=== PATIENT | female | born 1955 | race Caucasian/White ===

== ENCOUNTER 2023-07-01 05:11 | Observation (INO) | payer MEDICARE, BC ==
[2023-06-27 11:52] VITALS: BP 149/80; PULSE 68; RESP 19
[2023-06-27 12:13] LABS: BASOPHILS # (AUTO) 0.03 K/uL (0.00-0.20); BASOPHILS % (AUTO) 0.6 % (0.0-5.0); EOSINOPHILS # (AUTO) 0.08 K/uL (0.00-0.70); EOSINOPHILS % (AUTO) 1.6 % (0.0-8.0); HEMATOCRIT 37.3 % (36-48); IMMATURE GRANULOCYTE ABSOLUTE 0.02 K/uL (0-1); LYMPHOCYTES # (AUTO) 1.4 K/uL (1.0-4.8); LYMPHOCYTES % (AUTO) 28.9 % (21.0-51.0); MEAN CORPUSCULAR HEMOGLOBIN 28.1 pg (27.0-33.0); MEAN CORPUSCULAR HGB CONC 33.5 g/dL (32.0-36.0); MEAN CORPUSCULAR VOLUME 83.8 fL (79-99); MONOCYTES # (AUTO) 0.3 K/uL (0.1-1.0); NEUTROPHILS % (AUTO) 61.5 % (40.0-77.0); PLATELET COUNT (AUTO) 193 K/uL (130-400); RED BLOOD CELL COUNT(AUTO) 4.45 MIL/uL (4.00-5.50); RED CELL DISTRIBUTION WIDTH 13.9 % (11.0-15.5); WHITE BLOOD COUNT (AUTO) 4.9 K/uL (4.8-10.8)
[2023-06-27 12:24] LABS: INR 0.96 (0.85-1.15); PROTHROMBIN TIME 11.4 SEC (9.6-11.6)
[2023-06-27 12:25] LABS: PARTIAL THROMBOPLASTIN TIME 30.1 SEC (26.3-35.5)
[2023-06-27 12:30] LABS: CREATININE 0.8 mg/dL (0.5-1.0); POTASSIUM 4.6 mmol/L (3.5-5.1)
[2023-07-01] VITALS (27 sets, daily range): BP systolic 109–161; BP diastolic 49–82; PULSE 60–78; RESP 11–18; O2SAT 96–97
[~2023-07-01] VITALS: Ht 172.7 cm; Wt 98.8 kg
[~2023-07-01 05:11] MED LIST: AMLO-257 PO; APIX5TAB PO; CLID1CAP PO; DICL1TAB PO; ESCI20TA38 PO; ESZO2TAB56 PO; FLUT1AER IH; GABA300T26 PO; HYDR-4064 PO; LEVA1.2542 NEB; LORA10TA7 PO; MONT-39 PO; NEBI10TA12 PO; OLME40TA18 PO; OMEP1CAP2 PO; SOLI10TA7 PO; TIRZ10PE SQ; TIZA2CAP9 PO
[2023-07-01] MEDS: CEFAZOLIN SODIUM 2 GM VIAL ONE (06:28)
[2023-07-01] MEDS: 0.9%NACL 1000ML 1,000 ML IV ONE (06:29)
[2023-07-01] MEDS ORDERED: CEFAZOLIN SODIUM 1 GM VIAL ONE (09:01)
[2023-07-01] MEDS ORDERED: GENTAMICIN SULFATE 80 MG/2 ML VIAL ONE (09:02)
[2023-07-01] MEDS ORDERED: TRANEXAMIC ACID 1000MG/10ML ONE (09:02)
[2023-07-01] MEDS ORDERED: PROPOFOL 10 MG/ML 20ML VIAL IV ONE (09:28)
[2023-07-01] MEDS ORDERED: ROCURONIUM BROMIDE 10MG/1ML 5ML VL ONE (09:28)
[2023-07-01] MEDS ORDERED: LIDOCAINE PF 100MG/5ML (2%) SYRINGE 5ML ONE (09:28)
[2023-07-01] MEDS ORDERED: FENTANYL CITRATE PF 50 MCG/1 ML 2ML VIAL ONE (09:29)
[2023-07-01] MEDS ORDERED: DEXAMETHASONE SOD PHOSPHATE 10MG/ML 1ML VIAL ONE (09:48)
[2023-07-01] MEDS ORDERED: ONDANSETRON 4MG INJ ONE (09:48)
[2023-07-01] MEDS: CEFAZOLIN SODIUM 2 GM VIAL IVPB ONE (09:55)
[2023-07-01] MEDS ORDERED: PHENYLEPHRINE HCL 10 MG/ML 1ML VIAL IV ONE (10:21)
[2023-07-01] MEDS: 0.9%NACL 48.45 ML, ROPIVACAINE 0.5% 49.25ML, EPINEPH 0.5MG KETOROLAC 30MG,CLONIDINE 80MCG IV PRN (11:12)
[2023-07-01] MEDS ORDERED: GLYCOPYRROLATE 0.2 MG/ML 5 ML VIAL ONE (11:34)
[2023-07-01] MEDS ORDERED: NEOSTIGMINE METHYLSULFATE 1MG/ML IV ONE (11:34)
[2023-07-01] MEDS ORDERED: BENZOCAINE/MENTH/CETYLPYRD CL 1 EACH LOZENGE MM PRN (13:30)
[2023-07-01] MEDS ORDERED: DiphenhydrAMINE HCL 50 MG/ML VIAL IM PRN (13:30)
[2023-07-01] MEDS ORDERED: ACETAMINOPHEN 325 MG TAB PO SCH (13:30)
[2023-07-01] MEDS ORDERED: LACTULOSE 20 GM/30 ML UDCUP PO PRN (13:30)
[2023-07-01] MEDS ORDERED: MAG/ALUM/SIMETH 30 ML UDCUP PO PRN (13:30)
[2023-07-01] MEDS ORDERED: DIPHENHYDRAMINE HCL 25 MG CAPSULE PO PRN (13:30)
[2023-07-01] MEDS ORDERED: GABAPENTIN ENACARBIL 300 MG PO PRN ×2 (13:30→16:30)
[2023-07-01] MEDS ORDERED: DIPHENOXYLATE HCL/ATROPINE 2.5/0.025 MG TAB PO PRN (13:30)
[2023-07-01] MEDS ORDERED: ACETAMINOPHEN 325 MG TAB PO PRN (13:30)
[2023-07-01] MEDS ORDERED: ALBUTEROL 0.083% 2.5 MG/3 ML INH IH PRN (13:30)
[2023-07-01] MEDS ORDERED: ONDANSETRON 4MG INJ IVP PRN (13:30)
[2023-07-01] MEDS ORDERED: TIZANIDINE HCL 2 MG PO PRN (13:30)
[2023-07-01] MEDS ORDERED: DIPHENHYDRAMINE HCL 25 MG CAPSULE PO SCH (13:30)
[2023-07-01] MEDS: FAMOTIDINE 20MG VIAL IV ONE (13:43)
[2023-07-01] MEDS: ACETAMINOPHEN 1,000 MG/100 ML VIAL IV ONE (13:43)
[2023-07-01] MEDS: SCOPOLAMINE HYDROBROMIDE 1 EACH ADH..PATCH TD ONE (13:44)
[2023-07-01] MEDS: HYDROMORPH /0.9% NACL/PF PCA 50 ML IV PRN (13:50)
[2023-07-01] MEDS: 0.9%NACL 1000ML 1,000 ML IV SCH (13:52)
[2023-07-01] MEDS ORDERED: ZOLPIDEM TARTRATE 5 MG TAB PO PRN (14:00)
[2023-07-01] MEDS ORDERED: PHARMACY COMMUNICATION MISC SCH (14:30)
[2023-07-01] MEDS ORDERED: COMPOUND IV REFRIGERATED 1 EACH IVSOLN MISC PRN (15:00)
[2023-07-01] MEDS: OXYBUTYNIN CHLORIDE 5 MG TABLET PO SCH (15:05)
[2023-07-01] MEDS ORDERED: POTASSIUM CHLORIDE 20MEQ/100ML 100 ML IV PRN (15:30)
[2023-07-01] MEDS ORDERED: KCL 20 MEQ ERTAB PO PRN (15:30)
[2023-07-01] MEDS ORDERED: MAGNESIUM 2GM PREMIX 50ML 50 ML IV PRN (15:30)
[2023-07-01] MEDS ORDERED: POTASSIUM CHLORIDE 10% ELIXIR 20 MEQ/15 ML UDCUP PO PRN (15:30)
[2023-07-01] MEDS ORDERED: TIZANIDINE HCL 2 MG TABLET PO PRN (16:30)
[2023-07-01] MEDS: ACETAMINOPHEN 325 MG TAB PO PRN (16:59)
[2023-07-01] MEDS ORDERED: CEFAZOLIN SODIUM 2 GM VIAL IVPB SCH (18:00)
[2023-07-01] MEDS: CEFAZOLIN SODIUM 3 GM in DEXTROSE 5%-WATER 100 ML IVPB SCH (18:21)
[2023-07-01] MEDS: METOPROLOL TARTRATE 50 MG TAB PO SCH (19:33)
[2023-07-01] MEDS: LORATADINE 10 MG TABLET PO SCH (19:33)
[2023-07-01] MEDS: AMLODIPINE 5 MG TAB PO SCH (19:33)
[2023-07-01] MEDS: APIXABAN 5 MG TABLET PO SCH (19:34)
[2023-07-02 04:08] VITALS: BP 125/60; PULSE 61; RESP 18
[2023-07-02 04:25] LABS: HEMATOCRIT 28.1 % (36-48); MEAN CORPUSCULAR HEMOGLOBIN 27.6 pg (27.0-33.0); MEAN CORPUSCULAR HGB CONC 33.5 g/dL (32.0-36.0); MEAN CORPUSCULAR VOLUME 82.6 fL (79-99); RED BLOOD CELL COUNT(AUTO) 3.4 MIL/uL (4.00-5.50); RED CELL DISTRIBUTION WIDTH 13.4 % (11.0-15.5); WHITE BLOOD COUNT (AUTO) 11.4 K/uL (4.8-10.8)
[2023-07-02 04:32] LABS: CREATININE 0.7 mg/dL (0.5-1.0); MAGNESIUM 1.7 mg/dL (1.80-2.40); POTASSIUM 3.9 mmol/L (3.5-5.1)
[2023-07-02 08:24] VITALS: BP 125/75; PULSE 55; RESP 17
[2023-07-02] MEDS: FLUTICASONE/VILANTEROL 1 EACH AER.POW.BA IH SCH (09:00)
[2023-07-02] MEDS: PANTOPRAZOLE 40 MG TAB DR PO SCH (09:04)
[2023-07-02] MEDS: LOSARTAN 100 MG TABLET PO SCH (09:05)
[2023-07-02] MEDS: CITALOPRAM 20 MG TABLET PO SCH (09:05)
[2023-07-02] MEDS: MONTELUKAST SODIUM 10 MG TAB PO SCH (09:05)
[2023-07-02 11:14] VITALS: BP 139/56; PULSE 64; RESP 18
[2023-07-02 11:30] VITALS: O2SAT 94
[2023-07-02] MEDS: TRAMADOL HCL 50 MG TABLET PO PRN (13:34)
[2023-07-08] MEDS ORDERED: Tirzepatide (Mounjaro) 10 MG SQ SCH (09:00)
== END 2023-07-02 15:45 | disposition home or self-care (01) ==
LOC: DAH 05:11 → DAHIP 05:12 → DAH 05:12 → 4BH 13:15
PROVIDERS: ADMIT Orthopaedic Surgery; ATTEND Orthopaedic Surgery
DX: M17.12 Unilateral primary osteoarthritis, left knee (principal); D68.59 Other primary thrombophilia; E66.9 Obesity, unspecified; I25.10 Atherosclerotic heart disease of native coronary artery without angina pectoris; E11.9 Type 2 diabetes mellitus without complications; I10 Essential (primary) hypertension; J45.909 Unspecified asthma, uncomplicated; I48.91 Unspecified atrial fibrillation; E78.5 Hyperlipidemia, unspecified; G47.33 Obstructive sleep apnea (adult) (pediatric); Z79.01 Long term (current) use of anticoagulants; Z68.33 Body mass index [BMI] 33.0-33.9, adult
CPT/HCPCS: 80048 ×2; 85025; 85610; 85730; 36415 ×2; 87641; 27447; 96365; 96366 ×3; 96368; 82948 ×2; 97161; 97012; 97116 ×3; 97530 ×4; 83735; 85027; A6260; G0378 ×24; A4510; A4663; J7120; A4215 ×2; A4649 ×4; J3490 ×5; J3010; J0690 ×5; J1100; J7030 ×2; J2001; J1580 ×2; J7060; J2704; J2405; J2710; J2371; A6223; A4930; C1763 ×2; C1776; A5120; A4223; A4222; A4221; A6450; 96375